=== PATIENT | male | born 1960 | race Caucasian/White ===

== ENCOUNTER 2023-09-17 22:24 | Emergency (ER) | payer BC, OTHER ==
[2023-09-17] MEDS ORDERED: Lactated Ringers 1,000 ML IV ONE (22:40)
[2023-09-17] MEDS ORDERED: Sodium Chloride 0.9% 10 ML Syringe FLUSH PRN (22:40)
[2023-09-17 23:05] LABS: BASOPHILS ABSOLUTE AUTO 0.04 K/uL (0.00-0.20); BASOPHILS PERCENT AUTO 0.4 % (0.0-2.0); EOSINOPHILS ABSOLUTE AUTO 0.24 K/uL (0.00-0.50); EOSINOPHILS PERCENT AUTO 2.2 % (0.0-5.0); HEMATOCRIT 47.3 % (39.0-49.0); HEMOGLOBIN 16.1 g/dL (13.1-16.8); LYMPHOCYTES ABSOLUTE AUTO 2.99 K/uL (0.50-3.50); LYMPHOCYTES PERCENT AUTO 26.9 % (10.0-50.0); MEAN CORPUSCULAR HEMOGLOBIN 31.3 pg (28.2-33.3); MEAN CORPUSCULAR VOLUME 91.8 fL (84.0-98.0); MONOCYTES ABSOLUTE AUTO 0.82 K/uL (0.00-1.00); MONOCYTES PERCENT AUTO 7.4 % (2.0-14.0); NEUTROPHILS ABSOLUTE AUTO 7.03 K/uL (1.40-7.00); NEUTROPHILS PERCENT AUTO 63.1 % (45.0-80.0); PLATELET COUNT,PLT 164 K/uL (150-350); RED BLOOD CELL COUNT 5.15 M/uL (4.33-5.41); RED CELL DISTRIBUTION WIDTH 13.3 % (11.2-14.1); WHITE BLOOD CELL COUNT,WBC 11.1 K/uL (4.0-10.2)
[2023-09-17 23:20] LABS: INR 1.1 (0.9-1.1)
[2023-09-17 23:31] LABS: ALANINE AMINOTRANSFERASE,ALT 50 U/L (12-78); ALKALINE PHOSPHATASE 68 IU/L (46-116); ANION GAP 12.5 meq/L (7-15); ASPARTATE AMNIOTRANSFERASE,AST 22 U/L (15-37); BILIRUBIN TOTAL 0.4 mg/dL (0.2-1.0); BLOOD UREA NITROGEN,BUN 22 mg/dL (7-18); CARBON DIOXIDE,CO2 24.5 mmol/L (21.0-32.0); CHLORIDE,CL 102 mmol/L (98-107); CREATININE 1.54 mg/dL (0.51-1.17); ESTIMATED GFR 50 mL/min (>=60); GLUCOSE RANDOM 171 mg/dL (70-99); POTASSIUM,K 3.6 mmol/L (3.5-5.1); PRO B-TYPE NATRIUR PEPT,BNPPRO 17 pg/mL (0-125); SODIUM,NA 139 mmol/L (136-145)
[2023-09-17 23:36] LABS: CORONAVIRUS COVID-19 NAA NEGATIVE (NEGATIVE)
[2023-09-17 23:37] LABS: INFLUENZA A NAA NEGATIVE (NEGATIVE); INFLUENZA B NAA NEGATIVE (NEGATIVE); RESPIRATORY SYNCYTIAL VIR NAA NEGATIVE (NEGATIVE)
[2023-09-17 23:47] LABS: AMPHETAMINES SCREEN, URINE NEGATIVE (NEGATIVE); BARBITURATE SCREEN,URINE NEGATIVE (NEGATIVE); BENZODIAZEPINES SCREEN,URINE NEGATIVE (NEGATIVE); COCAINE METABOLITES,URINE NEGATIVE (NEGATIVE); EDDP,URINE SCREEN NEGATIVE (NEGATIVE); METHAMPHETAMINES SCREEN, URINE NEGATIVE (NEGATIVE); TCA SCREEN,URINE NEGATIVE (NEGATIVE); THC SCREEN,URINE 50 NG/ML POSITIVE (NEGATIVE)
[2023-09-17 23:48] LABS: BUPRENORPHINE SCREEN,URINE NEGATIVE (NEGATIVE); OXYCODONE SCREEN,URINE NEGATIVE (NEGATIVE)
== END 2023-09-18 00:20 | disposition home or self-care (01) ==
LOC: LL.ED 22:24
DX: F12.922 Cannabis use, unspecified with intoxication with perceptual disturbance (principal); N17.9 Acute kidney failure, unspecified; Z20.822 Contact with and (suspected) exposure to COVID-19; Z79.82 Long term (current) use of aspirin; Z79.899 Other long term (current) drug therapy
CPT/HCPCS: 0241U; 36415; 80053; 80305-QW; 83880; 85025; 85610; 93005; 93010; 96360; 99283-25; 99284; J7120